=== PATIENT | female | born 1965 | race Caucasian/White ===

== ENCOUNTER 2020-07-01 16:38 | Observation (INO) ==
[2020-07-01 18:19] LABS: Basophils # 0.1 K/mcL (0.0-0.2); Basophils % 0.6 %; Eosinophils # 0.3 K/mcL (0.0-0.6); Hematocrit 26.4 % (35.3-44.9); Hemoglobin 7.9 g/dL (11.5-15.4); Immature Granulocytes % 0.9 % (0-4); Lymphocytes # 1.3 K/mcL (0.6-4.6); Lymphocytes % 10.3 %; Mean Corpuscular HGB Conc 29.9 g/dL (31.6-35.5); Mean Corpuscular Hemoglobin 28.6 pg (28.0-33.3); Mean Corpuscular Volume 95.7 fL (83.0-100.0); Mean Platelet Volume 8.8 fL (9.4-12.4); Monocytes # 0.8 K/mcL (0.0-1.3); Monocytes % 6.4 %; Neutrophils # 9.9 K/mcL (1.6-8.9); Platelet Count 365 K/mcL (140-400); Red Blood Count 2.76 M/mcL (3.82-4.97); Red Cell Distribution Width 15.8 % (11.5-14.5); Segmented Neutrophils % 79.8 %; White Blood Count 12.4 K/mcL (4.3-11.1)
[2020-07-01 18:39] LABS: BUN/Creatinine Ratio 22 (6-26); Blood Urea Nitrogen 29 mg/dL (6-20); Calcium 9.1 mg/dL (8.6-10.3); Carbon Dioxide 19 mEq/L (23-29); Chloride 106 mEq/L (98-107); Glucose 135 mg/dL (70-105); Osmolality,Calculated 292 (280-300); Potassium 4.7 mEq/L (3.5-5.1); Sodium 137 mEq/L (136-145); Troponin I < 0.03 ng/mL (< 0.04); eGFR For African Americans 52 (> 60); eGFR For Non-African Americans 43 (> 60)
[2020-07-01] MEDS ORDERED: 0.9 % Sodium Chloride 500 ML IVC ONE (19:21)
[2020-07-01] MEDS ORDERED: Pantoprazole 40 MG VIAL IVP ONE ×2 (19:26)
[2020-07-01] MEDS ORDERED: Ondansetron 4 MG/2 ML VIAL IVP PRN (19:48)
[2020-07-01] MEDS ORDERED: Naloxone 0.4 MG/ML INJ IVP PRN (19:48)
[2020-07-01] MEDS ORDERED: Dextrose Gel 15 GM/37.5 ML TUBE PO PRN ×2 (19:58)
[2020-07-01] MEDS ORDERED: *HR* Dextrose 50 % in Water (Vial) 50 ML VIAL IVP PRN (19:58)
[2020-07-01] MEDS ORDERED: D5% in Water 1,000 ML IVC PRN (19:58)
[2020-07-01] MEDS ORDERED: 0.9 % Sodium Chloride 1,000 ML IVC SCH (20:00)
[2020-07-01] MEDS: Nystatin POWDER 30 GM BOTTLE TP SCH (22:30)
[2020-07-02] MEDS: Insulin LISPRO 300 UNITS/3 ML VIAL SUBQ SCH ×4 (00:59→17:14)
[2020-07-02 02:10] LABS: Basophils # 0.1 K/mcL (0.0-0.2); Basophils % 0.6 %; Eosinophils # 0.2 K/mcL (0.0-0.6); Eosinophils % 1.7 %; Hematocrit 27.9 % (35.3-44.9); Hemoglobin 8.5 g/dL (11.5-15.4); Immature Granulocytes % 0.9 % (0-4); Immature Reticulocyte % 36.9 % (11.0-38.0); Lymphocytes # 1.4 K/mcL (0.6-4.6); Lymphocytes % 14.3 %; Mean Corpuscular HGB Conc 30.5 g/dL (31.6-35.5); Mean Corpuscular Volume 95.2 fL (83.0-100.0); Mean Platelet Volume 8.7 fL (9.4-12.4); Monocytes # 0.7 K/mcL (0.0-1.3); Monocytes % 6.6 %; Neutrophils # 7.5 K/mcL (1.6-8.9); Platelet Count 305 K/mcL (140-400); Red Blood Count 2.93 M/mcL (3.82-4.97); Red Cell Distribution Width 15.5 % (11.5-14.5); Retculocyte # 0.08 M/mcL (0.05-0.10); Reticulocyte % 2.6 % (1.6-2.8); Segmented Neutrophils % 75.9 %; White Blood Count 9.9 K/mcL (4.3-11.1)
[2020-07-02 02:13] LABS: INR 1.1; Prothrombin Time 12.8 Seconds (9.4-12.1)
[2020-07-02 02:16] LABS: Activated Partial Thrombo Time 28.1 Seconds (26.0-36.0)
[2020-07-02 02:27] LABS: Albumin 3.4 g/dL (3.5-5.7); Albumin/Globulin Ratio 1.2 (1.1-2.2); Bilirubin,Total 0.4 mg/dL (0.3-1.0); Calcium 8.8 mg/dL (8.6-10.3); Globulin 2.8 g/dL (2.4-3.5); Potassium 4.5 mEq/L (3.5-5.1); Total Protein 6.2 g/dL (6.4-8.9)
[2020-07-02 04:11] LABS: Bacteria,Urine Moderate per hpf (None-Few); Bilirubin,Urine Negative (Negative); Blood,Urine Trace (Negative); Clarity,Urine Turbid (Clear); Color,Urine Yellow (Yellow); Glucose,Urine (UA) Normal (Normal); Hyaline Casts,Urine Few per lpf (None Seen); Ketones,Urine Negative (Negative); Leukocyte Esterase,Urine Large (Negative); Mucus,Urine Few per lpf (None-Few); Nitrite,Urine Positive (Negative); Protein,Urine Trace mg/dL (Neg-Trace); Specific Gravity,Urine 1.022 (1.010-1.025); Squamous Epithelial Cell,Urine Moderate per hpf (None-Few); Urobilinogen,Urine Normal (Normal); WBC,Urine 50-100 per hpf (0-3)
[2020-07-02] MEDS ORDERED: Perflutren Lipid Microsphere 1.3 ML in 0.9 % Sodium Chloride 8.7 ML IVP PRN (04:42)
[2020-07-02] MEDS: cefTRIAXone 1,000 MG in 0.9 % Sodium Chloride Mini Bag 100 ML IVPB SCH (05:55)
[2020-07-02] MEDS: Pantoprazole 40 MG VIAL IVP SCH ×2 (06:31→17:03)
[2020-07-02] MEDS ORDERED: 0.9 % Sodium Chloride 250 ML ONE (07:44)
[2020-07-02] MEDS: Nystatin POWDER 30 GM BOTTLE TP SCH ×2 (08:48→21:43)
[2020-07-02 12:09] LABS: Influenza A PCR Negative (Negative); Influenza B PCR Negative (Negative); Resp. Syncytial Virus PCR Negative (Negative)
[2020-07-02 12:12] LABS: SARS-CoV-2 by PCR (In House) Negative (Negative)
[2020-07-02] MEDS: 0.9 % Sodium Chloride 1,000 ML IVC SCH (12:33)
[2020-07-02 18:05] LABS: Hematocrit 31.7 % (35.3-44.9); Hemoglobin 9.7 g/dL (11.5-15.4)
[2020-07-03] MEDS: Insulin LISPRO 300 UNITS/3 ML VIAL SUBQ SCH ×3 (02:13→13:00)
[2020-07-03] MEDS: 0.9 % Sodium Chloride 1,000 ML IVC SCH ×2 (06:21→07:50)
[2020-07-03] MEDS: Pantoprazole 40 MG VIAL IVP SCH (06:21)
[2020-07-03] MEDS: cefTRIAXone 1,000 MG in 0.9 % Sodium Chloride Mini Bag 100 ML IVPB SCH (06:22)
[2020-07-03 07:48] LABS: Basophils # 0.1 K/mcL (0.0-0.2); Basophils % 0.7 %; Eosinophils # 0.3 K/mcL (0.0-0.6); Eosinophils % 3.2 %; Hematocrit 29.6 % (35.3-44.9); Hemoglobin 9.2 g/dL (11.5-15.4); Immature Granulocytes % 0.9 % (0-4); Lymphocytes # 1.4 K/mcL (0.6-4.6); Lymphocytes % 16.1 %; Mean Corpuscular HGB Conc 31.1 g/dL (31.6-35.5); Mean Corpuscular Hemoglobin 28.7 pg (28.0-33.3); Mean Corpuscular Volume 92.2 fL (83.0-100.0); Mean Platelet Volume 8.7 fL (9.4-12.4); Monocytes # 0.8 K/mcL (0.0-1.3); Neutrophils # 6.1 K/mcL (1.6-8.9); Nucleated Red Blood Cells 0.2 /100 WBC (0); Platelet Count 283 K/mcL (140-400); Red Blood Count 3.21 M/mcL (3.82-4.97); Red Cell Distribution Width 15.7 % (11.5-14.5); Segmented Neutrophils % 70.1 %; White Blood Count 8.6 K/mcL (4.3-11.1)
[2020-07-03 08:16] LABS: BUN/Creatinine Ratio 16 (6-26); Blood Urea Nitrogen 15 mg/dL (6-20); Calcium 9.3 mg/dL (8.6-10.3); Carbon Dioxide 19 mEq/L (23-29); Chloride 108 mEq/L (98-107); Glucose 122 mg/dL (70-105); Osmolality,Calculated 286 (280-300); Potassium 3.8 mEq/L (3.5-5.1); Sodium 137 mEq/L (136-145); eGFR For African Americans > 60 (> 60); eGFR For Non-African Americans > 60 (> 60)
[2020-07-03] MEDS: Nystatin POWDER 30 GM BOTTLE TP SCH (11:34)
[2020-07-03 12:29] VITALS: BP 114/72
[2020-07-03] MEDS ORDERED: Lidocaine -MPF 2% 5 ML VIAL SQ ONE (17:25)
[2020-07-03] MEDS ORDERED: *HR* Propofol 500 MG/50 ML BOTTLE IVP ONE (17:25)
[2020-07-03] MEDS ORDERED: *HR* Propofol 200 MG/20 ML VIAL IVP ONE (17:25)
[2020-07-03] MEDS ORDERED: *HR* Metoprolol 5 MG/5 ML VIAL IVP ONE (17:25)
[2020-07-03] MEDS ORDERED: Sucralfate 1 GM TABLET PO SCH (21:00)
== END 2020-07-03 17:26 | disposition home health service (06) ==
LOC: EMEROOARM 16:38 → CDU 16:38
PROVIDERS: ADMIT Student in an Organized Health Care Education/Training Program; ATTEND Student in an Organized Health Care Education/Training Program
PROC: ENDOEBX (2020-07-03 09:00)